=== PATIENT | male | born 1960 | race Hispanic/Latino ===

== ENCOUNTER 2018-08-31 08:11 | Observation (INO) | payer BC ==
[2018-08-30 14:57] VITALS: BP 146/93
[2018-08-30 15:00] LABS: BASOPHILS % (AUTO) 1.4 % (0.0-5.0); EOSINOPHILS % (AUTO) 1.3 % (0.0-8.0); HEMATOCRIT 49.8 % (42-54); MEAN CORPUSCULAR HEMOGLOBIN 30.2 pg (27.0-33.0); MEAN CORPUSCULAR HGB CONC 33.6 g/dL (32.0-36.0); MEAN CORPUSCULAR VOLUME 89.8 fL (79-99); MONOCYTES % (AUTO) 6.3 % (3.0-13.0); PLATELET COUNT (AUTO) 178 K/uL (130-400); RED BLOOD CELL COUNT(AUTO) 5.54 MIL/uL (4.50-6.20); RED CELL DISTRIBUTION WIDTH 13.6 % (11.0-15.5); WHITE BLOOD COUNT (AUTO) 6.6 K/uL (4.8-10.8)
[2018-08-30 15:11] LABS: POTASSIUM 4.5 mmol/L (3.5-5.1)
[2018-08-30 15:13] LABS: INR 0.91 (0.85-1.15); PARTIAL THROMBOPLASTIN TIME 27.6 SEC (26.3-35.5); PROTHROMBIN TIME 9.6 SEC (9.6-11.6)
[2018-08-30 15:22] LABS: APPEARANCE,URINE Clear (CLEAR); BILIRUBIN,URINE Negative (NEGATIVE); COLOR,URINE Yellow (YELLOW); GLUCOSE, URINE (UA) Negative (NEGATIVE); KETONES,URINE Negative (NEGATIVE); LEUKOCYTE ESTERASE ,URINE Negative (NEGATIVE); NITRATE,URINE Negative (NEGATIVE); OCCULT BLOOD,URINE Negative (NEGATIVE); PROTEIN,URINE Negative (NEGATIVE)
[2018-08-31] VITALS (23 sets, daily range): BP systolic 50–144; BP diastolic 23–87
[~2018-08-31] VITALS: Ht 185.4 cm; Wt 87.7 kg
[~2018-08-31 08:11] MED LIST: AZIL40TA PO; SODIUM CHLORIDE 0.9% 500ML 500 ML IV SCH
[2018-08-31] MEDS ORDERED: SODIUM CHLORIDE 0.9% 1000ML 1,000 ML IV ONE (09:26)
[2018-08-31] MEDS ORDERED: LIDOCAINE HCL 2% 20ML ONE (09:37)
[2018-08-31] MEDS ORDERED: IOHEXOL-350 50ML VIAL IV ONE (09:37)
[2018-08-31] MEDS ORDERED: IOHEXOL 350 MG/ML 100ML INFUS..BTL IV ONE ×2 (09:37→10:30)
[2018-08-31] MEDS ORDERED: HEPARIN SODIUM 1000UNIT/ML 10ML VIAL ONE (10:30)
[2018-08-31] MEDS ORDERED: CLOPIDOGREL BISULFATE 300 MG TAB ONE (10:54)
[2018-08-31] MEDS ORDERED: ASPIRIN 81MG TAB.CHEW ONE (10:55)
[2018-08-31] MEDS ORDERED: ONDANSETRON HCL 4 MG/2 ML VIAL IVP SCH ×2 (11:15→17:15)
[2018-08-31] MEDS ORDERED: ONDANSETRON HCL 4 MG/2 ML VIAL IVP PRN (11:15)
[2018-08-31] MEDS ORDERED: MORPHINE SULFATE 5 MG/ML VIAL IVP SCH ×2 (11:15→17:15)
[2018-08-31] MEDS ORDERED: ACETAMINOPHEN-CODEINE 300/30MG TAB PO PRN ×2 (11:15)
[2018-08-31] MEDS ORDERED: DEXTROSE 5 %-0.45 % NACL 1,000 ML IV SCH (17:45)
[2018-08-31] MEDS: CARVEDILOL 3.125 MG TABLET PO SCH (20:50)
[2018-08-31] MEDS ORDERED: CARVEDILOL 6.25 MG TABLET PO SCH (21:00)
[2018-08-31] MEDS ORDERED: ATORVASTATIN CALCIUM 20 MG TABLET PO SCH (21:00)
[2018-08-31] MEDS ORDERED: ATORVASTATIN CALCIUM 10 MG TABLET PO SCH (21:00)
[2018-09-01 03:27] VITALS: BP 117/75
[2018-09-01 07:42] VITALS: BP 106/69
[2018-09-01] MEDS: CARVEDILOL 3.125 MG TABLET PO SCH (08:49)
[2018-09-01] MEDS ORDERED: CLOPIDOGREL BISULFATE 75 MG TAB PO SCH (09:00)
[2018-09-01] MEDS ORDERED: ASPIRIN 81MG TAB.CHEW PO SCH (09:00)
[2018-09-01] MEDS ORDERED: EDARBI 40 MG PO SCH (09:00)
[2018-09-01 11:31] VITALS: BP 107/61
== END 2018-09-01 13:58 | disposition home or self-care (01) ==
LOC: DAH 08:11 → DAHIP 08:12 → DAH 08:12 → 2AH 15:44
PROVIDERS: ADMIT Internal Medicine; ATTEND Internal Medicine
DX: I25.110 Atherosclerotic heart disease of native coronary artery with unstable angina pectoris (principal); I11.9 Hypertensive heart disease without heart failure; E78.5 Hyperlipidemia, unspecified; Z82.49 Family history of ischemic heart disease and other diseases of the circulatory system; Z79.899 Other long term (current) drug therapy; Z79.01 Long term (current) use of anticoagulants
CPT/HCPCS: 36415 ×2; 71045; 80048; 81003; 85025; 85610; 85730 ×3; 93005 ×3; 93458; 96374; 96375; C1725; C1769; C1874; C1887; C1894; C9600; G0378 ×30; J1644 ×3; J2270; J2405; J3490; J7030; J7042; Q9965 ×2; Q9967 ×3